=== PATIENT | male | born 1955 | race Caucasian/White ===

== ENCOUNTER 2017-10-27 10:04 | Emergency (ER) | payer OTHER ==
[2017-10-27] MEDS ORDERED: LET GEL TOPICAL 1 EA SYR TP ONE ×2 (10:11→10:40)
[2017-10-27] MEDS ORDERED: TDAP ADULT 0.5 ML INJ (BOOSTRIX) IM ONE (10:23)
[2017-10-27] MEDS ORDERED: SKIN ADHESIVE (DERMABOND) 1 EACH TP ONE (11:40)
--- NOTE | 2017-10-27 11:49 | EDPHY ---
H & P Time Seen by Provider: 10/27/17 10:06 HPI/ROS: 62 yo M presents c/o while walking the dog tripped landing on his right elbow , right face and right knee. He sustained several abrasions to nose, face, arm, upper lip and knee. No loss of consciousness, no nausea, no vomiting, no headache. Patient was wearing glasses at the time. He takes Coumadin for history of deep vein thrombosis. His last INR was 2.6 Review of systems As per HPI General no fever no chills no weakness HEENT no eye pain no eye discharge. No eye redness, no sore throat Respiratory no cough, no shortness of breath Cardiac no chest pain, no peripheral edema GI no abdominal pain, no diarrhea, no constipation, no nausea, no vomiting no flank pain, no hematuria, no dysuria Musculoskeletal positive mild muscle aches, no joint pain Heme no easy bruising, no easy bleeding Endo no polyuria, no polydipsia Skin no rashes, no pruritus Neuro no syncope, no dizziness, no headaches Psych is no suicidal ideation, no homicidal ideation Past Medical/Surgical History: Deep vein thrombosis Social History: Denies alcohol or drug use Smoking Status: Never smoked Physical Exam: 62-year-old male alert and oriented no acute distress nontoxic appearance, afebrile Normocephalic right infraorbital ecchymoses abrasion to nasal bridge, and upper lip laceration infraorbital on the right, 2.5 cm eomi, no evidence of entrapment 5 mm stellate laceration at right mid lateral face non gaping neck supple nose no septal hematoma lungs cta bilat heart rrr abd nabs soft ext abrasion right elbow and right knee, from of elbow and knee gait intact neuro alert and oriented , no focal deficits Constitutional: Initial Vital Signs Temperature (C) 37 C 10/27/17 10:18 Heart Rate 66 10/27/17 10:18 Respiratory Rate 16 10/27/17 10:18 Blood Pressure 149/94 H 10/27/17 10:18 O2 Sat (%) 96 10/27/17 10:18 O2 Delivery Mode Room Air Allergies/Adverse Reactions: No Known Allergies Allergy (Unverified 10/27/17 10:17) Home Medications: Medication Instructions Recorded Coumadin 10/27/17 Medical Decision Making Procedures: Procedure note-laceration The wound was irrigated with copious amounts of saline. Lidocaine 1% with epinephrine was used for local anesthetic. Eight simple interrupted sutures were placed. 6-0 Ethilon was used. Patient tolerated procedure well. ED Course/Re-evaluation: Patient seen and evaluated for fall with facial laceration. Impression/plan Infraorbital ecchymosis, right Right infraorbital laceration-sutured Right lateral facial superficial stellate laceration-adhesive Wound care provided for various abrasions Differential Diagnosis: Differential diagnosis considered but not limited to Multiple abrasions, nasal fracture, infraorbital fracture facial fracture, orbital entrapment, lacerations, abrasions - Data Points Medications Given: Discontinued Medications Diphtheria/Tetanus/Acell Pertussis (Boostrix) 0.5 ml IM .ONCE ONE Stop: 10/27/17 10:24 Last Admin: 10/27/17 10:27 Dose: 0.5 ml Tetracaine/Epinephrine/Lidocaine (Let Gel Topical) 1 ea TP EDNOW ONE Stop: 10/27/17 10:41 Last Admin: 10/27/17 10:40 Dose: 1 ea Departure - Departure Disposition: Home, Routine, Self-Care Clinical Impression: Facial laceration, Multiple abrasions Condition: Good Instructions: Abrasion (ED), Skin Adhesive Care (ED), Facial Laceration (ED) Additional Instructions: Return in 5-7 days to have facial sutures removed. Referrals: FAYE LOPEZ [Primary Care Provider] - As per Instructions
[2017-10-27 12:07] VITALS: BP 140/88
== END 2017-10-27 12:00 | disposition home or self-care (01) ==
LOC: CED 10:04
PROC: 0HQ1XZZ Repair Face Skin, External Approach (ICD-10-PCS; principal; 2017-10-27)
DX: S01.81XA Laceration without foreign body of other part of head, initial encounter (principal); S50.311A Abrasion of right elbow, initial encounter; S80.211A Abrasion, right knee, initial encounter; Z23 Encounter for immunization; Z79.01 Long term (current) use of anticoagulants; W01.0XXA Fall on same level from slipping, tripping and stumbling without subsequent striking against object, initial encounter; Y99.8 Other external cause status; Y93.K1 Activity, walking an animal